=== PATIENT | male | born 1955 | race Caucasian/White ===

== ENCOUNTER 2020-02-08 12:16 | Outpatient (CLI) | payer MEDICARE ==
[2020-02-09] MEDS ORDERED: VITAMIN D250 MCG PO (13:55)
[2020-02-09] MEDS ORDERED: ASPIRIN EC81 MG ORAL (13:55)
[2020-02-09] MEDS ORDERED: FISH OIL 1,2001 EAC3 PO (13:55)
[2020-02-09] MEDS ORDERED: MONTELUKAST SOD10 MG ORAL (13:55)
[2020-02-09] MEDS ORDERED: DOVATO 50-3001 EACH PO (13:55)
[2020-02-09] MEDS ORDERED: VITAMIN B6100 MG/2.5 PO (13:55)
[2020-02-09] MEDS ORDERED: FLOMAX0.4 MG ORAL (13:55)
[2020-02-09] MEDS ORDERED: BREO ELLIPTA 21 EACH IH (13:55)
[2020-02-09] MEDS ORDERED: TRAZODONE HCL50 MG ORAL (13:55)
[2020-02-09] MEDS ORDERED: OYSTER SHELL 51 EAC1 PO (13:55)
[2020-02-09] MEDS ORDERED: ATORVASTATIN CA10 MG ORAL (13:55)
--- NOTE | 2020-02-09 17:00 | Consultation ---
DATE OF CONSULTATION: 02/08/2020 CHIEF COMPLAINT: Referral for evaluation for stool OB positive. PAST MEDICAL HISTORY: 1. COVID positivity. 2. HIV. 3. COPD. 4. History of colonic polyps. PAST SURGICAL HISTORY: None. MEDICATIONS: Please see medication reconciliation list. FAMILY HISTORY: Noncontributory. SOCIAL HISTORY: The patient drinks socially. Quit tobacco 5 years ago. Denies any IV drug abuse. ALLERGIES: No known allergies. REVIEW OF SYSTEMS: Never had endoscopy. Last colonoscopy in March 2019 with polyps. The patient also has symptoms of GERD. PHYSICAL EXAMINATION: GENERAL: A well-developed male, in no acute distress HEENT: Normocephalic and atraumatic. Sclerae anicteric. NECK: Supple. No evidence of obvious lymphadenopathy. CARDIOVASCULAR: Regular rate and rhythm. Plus S1-S2. LUNGS: Clear to auscultation bilaterally. ABDOMEN: Positive bowel sounds. Soft and nontender. No rebound. No peritoneal sign. EXTREMITIES: No cyanosis, no clubbing. ASSESSMENT AND PLAN: This is a 64-year-old male with stool OB positive. He had a colonoscopy in 2018 with polyps. Plan to start with endoscopy. The patient is to bring his colonoscopy report. If the colonoscopy is inadequate for any reason, we will consider doing colonoscopy too, but meanwhile we are going to get the patient scheduled for endoscopy. Ole Herzog M.D. DR: RENETTA JOB#: [id number] CC:
== END 2020-02-08 14:16 | disposition home or self-care (01) ==
LOC: PAN 12:16
DX: K92.1 Melena (principal); B20 Human immunodeficiency virus [HIV] disease; J44.9 Chronic obstructive pulmonary disease, unspecified; Z86.010 Personal history of colon polyps; Z86.19 Personal history of other infectious and parasitic diseases
CPT/HCPCS: G0463